=== PATIENT | male | born 1990 | race Two or more races ===

== ENCOUNTER 2025-03-15 22:29 | Emergency (ER) | payer OTHER ==
[2025-03-15 22:36] VITALS: BMI 22.1
[2025-03-15] MEDS: SODIUM CHLORIDE 1,000 ML IV STA (23:53)
[2025-03-15 23:57] LABS: ABSOLUTE IMMATURE GRANULOCYTES 0.02 x10^3/uL (0.0-0.031); BASOPHILS # 0.03 x10^3/uL (0.01-0.08); EOSINOPHIL % 1.3 % (0.8-7.0); EOSINOPHILS # 0.08 x10^3/uL (0.04-0.54); MCHC 33.0 g/dl (32.3-36.5); MEAN CELL VOLUME 83.2 fl (79.0-92.2); MEAN PLT VOLUME 9.9 fl (9.4-12.4); MONOCYTE # 0.49 x10^3/uL (0.30-0.82); MONOCYTE % 8.0 % (5.3-12.2); RDW 13.3 % (12.0-15.6)
[2025-03-15 23:59] LABS: URINE APPEARANCE CLEAR; URINE BILIRUBIN NEGATIVE (NEGATIVE); URINE COLOR YELLOW; URINE GLUCOSE (UA) NEGATIVE (NEGATIVE); URINE KETONE NEGATIVE (NEGATIVE); URINE LEUK ESTERASE NEGATIVE (NEGATIVE); URINE NITRITE NEGATIVE (NEGATIVE); URINE PROTEIN NEGATIVE (NEGATIVE); URINE UROBILINOGEN 1.0 mg/dL (0.2-1.0)
[2025-03-16 00:19] LABS: GLUCOSE,RANDOM 98.0 mg/dL (74-106)
[2025-03-16 00:21] LABS: CO2 27.0 mmol/L (21-32)
[2025-03-16 00:22] LABS: ALK PHOS 82.0 U/L (40-150)
[2025-03-16 00:25] LABS: SGOT/AST 15.0 U/L (5-34); SGPT/ALT 15.0 U/L (0-55)
[2025-03-16 00:35] LABS: TOT PROT 7.5 g/dl (6.4-8.2)
[2025-03-16 00:37] LABS: CREATININE 1.34 mg/dL (0.55-1.3)
[2025-03-16 00:48] LABS: HCV DIAGNOSTIC IN-HOUSE W/RFLX NON-REACTIVE (NONREACTIVE)
[2025-03-16 00:51] LABS: HIV INTERPRETATION NEGATIVE (NEGATIVE)
[2025-03-16 01:23] VITALS: PULSE 55; RESP 16; TEMP 98.1
[2025-03-16 02:43] VITALS: BP 133/88
== END 2025-03-16 03:24 | disposition home or self-care (01) ==
LOC: JER 22:29
PROC: 3E0337Z Introduction of Electrolytic and Water Balance Substance into Peripheral Vein, Percutaneous Approach (ICD-10-PCS; principal; 2025-03-15)
DX: R42 Dizziness and giddiness (principal); R20.0 Anesthesia of skin; R06.02 Shortness of breath
CPT/HCPCS: 36415; 71046-TC-FY; 80053; 81003; 85025; 86803; 87389; 87637-QW; 93005; 93010; 99285-25